=== PATIENT | male | born 1985 | race Caucasian/White ===

== ENCOUNTER → 2016-07-27 | Outpatient (CLI) | payer OTHER ==
[~2016-07-27] MED LIST: IOPAMIDOL (ISOVUE-300) 50 ML VIAL IV ONE
--- NOTE | 2016-07-27 11:11 | CT ---
CT Pelvis With Contrast Indication: Lower abdominal pain. Technique: 1.25 mm contiguous helical axial scanning from the mid abdomen through the pelvis after th e uneventful intravenous administration of 90 amount of Isovue-300. Reconstructions were performed in the coronal and sagittal planes. Dose reduction technique was performed. The patient was scanned in Valsalva to evaluate for hernia. Comparison: Testicular ultrasound November 06, 2013. Findings: Limited examination of the liver and gallbladder is unremarkable. Limited examination of the kidneys is normal. Small bowel and colon are unremarkable. Nonspecific enteric and periaortic ly mph nodes are present. In the low pelvis out of the second right neural foramen of the sacrum is a ro unded 1.5 x 2.3 cm nodule measuring 23 to 25 Hounsfield units. Prostate and seminal vesicles are unre markable. The bones are grossly unremarkable. No evidence of hernia. Impression: Indeterminate right S2 nodule. Differential includes perineural cyst versus peripheral ne rve sheath tumor. MR is recommended for further evaluation. I have discussed these findings with Dr. Torres on July 27, 2016 at 10:45 a.m. A Follow-Up Required test result notification was sent via the [employer] service, 10:51:09 AM, , [employer] Message ID [id number].
== END ==
LOC: CIMAGING 09:12
PROVIDERS: ATTEND Family Medicine
DX: M53.3 Sacrococcygeal disorders, not elsewhere classified (principal)
CPT/HCPCS: 72193-PO; Q9967